=== PATIENT | male | born 1980 | race Caucasian/White ===

== ENCOUNTER 2023-06-30 21:46 | Emergency (ER) | payer MEDICAID ==
[~2023-06-30] VITALS: Ht 182.9 cm; Wt 99.8 kg
[2023-06-30 22:07] VITALS: TEMP 98
[2023-06-30] MEDS ORDERED: LIDOCAINE 5% (PATCH) 1 EA PATCH TP ONE (23:18)
[2023-06-30] MEDS ORDERED: KETOROLAC TROMETHAMINE 15 MG/ML VIAL ONE (23:18)
[2023-06-30] MEDS ORDERED: ACETAMINOPHEN ES 500 MG TABLET ONE (23:18)
[2023-06-30] MEDS ORDERED: CYCLOBENZAPRINE 10 MG TABLET ONE (23:18)
[2023-06-30] MEDS: KETOROLAC TROMETHAMINE 15 MG/ML VIAL IM ONE (23:26)
[2023-06-30] MEDS: ACETAMINOPHEN ES 500 MG TABLET PO ONE (23:26)
[2023-06-30] MEDS: CYCLOBENZAPRINE 10 MG TABLET PO ONE (23:26)
[2023-06-30] MEDS: LIDOCAINE 5% (PATCH) 1 EA PATCH TP ONE (23:27)
[2023-06-30] MEDS ORDERED: IBUP-1955 PO (23:38)
[2023-06-30] MEDS ORDERED: ACET-2605 PO (23:38)
[2023-06-30] MEDS ORDERED: CYCL5TAB PO (23:38)
[2023-06-30 23:53] VITALS: BP 128/68; O2SAT 99
== END 2023-06-30 23:54 | disposition home or self-care (01) ==
LOC: ER 21:57
DX: R51.9 Headache, unspecified (principal); M54.6 Pain in thoracic spine; I10 Essential (primary) hypertension; V89.2XXA Person injured in unspecified motor-vehicle accident, traffic, initial encounter; Y93.89 Activity, other specified; Y92.89 Other specified places as the place of occurrence of the external cause; Y99.8 Other external cause status
CPT/HCPCS: 99284; 96372; J1885